=== PATIENT | male | born 1995 | race Caucasian/White ===

== ENCOUNTER 2021-05-25 18:01 | Emergency (ER) | payer SELFPAY ==
--- NOTE | 2021-05-25 19:37 | NUR ---
CALLED FOR TRIAGE , NO ANSWER
--- NOTE | 2021-05-25 20:01 | NUR ---
CALLED FOR TRIAGE , NO ANSWER
--- NOTE | 2021-05-25 20:07 | NUR ---
CALLED FOR TRIAGE, NO ANSWER
== END 2021-05-25 21:23 | disposition left against medical advice (07) ==
LOC: ER 20:39
DX: Z53.21 Procedure and treatment not carried out due to patient leaving prior to being seen by health care provider (principal)